=== PATIENT | female | born 2000 | race Caucasian/White ===

== ENCOUNTER 2022-03-19 20:05 | Emergency (ER) | payer OTHER ==
[2022-03-19 20:31] VITALS: BP 108/75; PULSE 115; RESP 15; BMI 25.7
[2022-03-19] MEDS ORDERED: IBUPROFEN 600 MG TABLET (FP) PO ONE ×2 (20:52→21:11)
[2022-03-19 21:20] VITALS: TEMP 102.9
== END 2022-03-19 21:22 | disposition home or self-care (01) ==
LOC: FER 20:05
DX: R50.9 Fever, unspecified (principal)
CPT/HCPCS: 0241U-QW; 87651; 99283-25